=== PATIENT | male | born 1970 | race Caucasian/White ===

== ENCOUNTER → 2016-11-09 | Outpatient (CLI) | payer OTHER ==
[2016-11-09 07:41] LABS: CH 30.7; CHCM 33.5; HDW 2.47; HGB 15.8 gm/dL (13.0-17.5); MCH 30.3 pg (25.0-35.0); MCHC 32.9 g/dL (31.0-37.0); MCV 92.2 fL (80.0-100.0); Mean Platelet Volume 7.5; RBC 5.21 m/uL (4.30-5.90); RDW 14.1 % (11.5-15.5); WBC 9.7 k/uL (3.8-10.6)
[2016-11-09 07:48] LABS: ALT 46 U/L (21-72); AST 31 U/L (17-59); Alkaline Phosphatase 70 U/L (38-126); Anion Gap 10 mmol/L; Blood Urea Nitrogen 18 mg/dL (9-20); Calcium 10.1 mg/dL (8.4-10.2); Carbon Dioxide 28 mmol/L (22-30); Chloride 104 mmol/L (98-107); Cholesterol 139 mg/dL (<200); Glucose 108 mg/dL (74-99); HDL Cholesterol 34 mg/dL (40-60); Non-African American GFR(MDRD) >60 (>60 ml/min/1.73 sqM); Potassium 4.7 mmol/L (3.5-5.1); Sodium 142 mmol/L (137-145); Total Bilirubin 1.4 mg/dL (0.2-1.3); Total Protein 7.2 g/dL (6.3-8.2); Triglycerides 59 mg/dL (<150)
[2016-11-09 11:01] LABS: Hemoglobin A1C 5.8 % (4.2-6.1)
== END ==
LOC: LABWHC1 07:02
PROVIDERS: ATTEND Internal Medicine
DX: E11.9 Type 2 diabetes mellitus without complications (principal); I10 Essential (primary) hypertension
CPT/HCPCS: 36415; 80053; 80061; 82043; 83036; 84439; 84443; 85027

== ENCOUNTER → 2018-05-23 | Outpatient (CLI) | payer OTHER ==
[2018-05-23 11:23] LABS: HCT 47.5 % (39.0-53.0); MCHC 33.6 g/dL (31.0-37.0); MCV 89.1 fL (80.0-100.0); Mean Platelet Volume 6.9; Platelet Count 295 k/uL (150-450); RBC 5.32 m/uL (4.30-5.90); RDW 13.6 % (11.5-15.5); WBC 9.3 k/uL (3.8-10.6)
[2018-05-23 17:28] LABS: Albumin 4.4 g/dL (3.80-4.90); Albumin/Globulin Ratio 2.44 (1.20-2.10); Anion Gap 6.1 mmol/L (4.00-12.00); Calcium 9.9 mg/dL (8.7-10.3); Carbon Dioxide 25.9 mmol/L (21.6-31.8); Globulin 1.8 g/dL (2.1-3.7); LDL Cholesterol,Calculated 100.2 mg/dL (0.0-131.0); Potassium 4.7 mmol/L (3.5-5.5); Total Bilirubin 0.8 mg/dL (0.2-1.2); Total Protein 6.2 g/dL (6.2-8.2); VLDL Calculation 15.8 mg/dL (5.00-40.00)
[2018-05-23 17:35] LABS: Prostate Specific Antigen 0.8 ng/mL (0.0-2.5)
== END | disposition home or self-care (01) ==
LOC: LABWHC1 10:34
PROVIDERS: ATTEND Internal Medicine
DX: E78.00 Pure hypercholesterolemia, unspecified (principal); E11.9 Type 2 diabetes mellitus without complications; I10 Essential (primary) hypertension; Z12.5 Encounter for screening for malignant neoplasm of prostate
CPT/HCPCS: 36415; 80053; 80061; 82043; 82570; 83036; 84153; 84443; 85027

== ENCOUNTER 2018-08-05 11:54 | Emergency (ER) | payer OTHER ==
--- NOTE | 2018-08-05 13:09 | ED ---
General Adult HPI - General Chief complaint: Extremity Injury, Upper Stated complaint: IHS-Crushing Finger Injury Source: patient, RN notes reviewed Mode of arrival: ambulatory Limitations: no limitations - History of Present Illness Initial comments: Patient is a 48-year-old male who presents the emergency department with complaint of left pinky finger injury that occurred at work at approximately 11 AM today. He reports 2 pieces of concrete smashed his finger. He reports going to [facility] and then being sent to the ER for concern of possible open fracture. He reports being up-to-date on his tetanus vaccination. He denies taking anything for pain and states that he does not need anything for pain at this time. Patient denies any recent fever, chills, shortness of breath, chest pain, back pain, abdominal pain, nausea or vomiting, head injury, headaches or visual changes, or any other complaints. - Related Data Home Medications Medication Instructions Recorded Confirmed Lisinopril-Hctz 20-25 mg 1 tab PO DAILY 05/28/16 05/28/16 [Zestoretic 20-25] Previous Rx's Medication Instructions Recorded Cephalexin [Keflex] 500 mg PO Q6HR 7 Days 08/05/18 Allergies Allergy/AdvReac Type Severity Reaction Status Date / Time Penicillins AdvReac Severe Rapid Verified 05/28/16 17:34 Heart Rate Review of Systems ROS Statement: Those systems with pertinent positive or pertinent negative responses have been documented in the HPI. ROS Other: All systems not noted in ROS Statement are negative. Past Medical History Past Medical History: GERD/Reflux, Hypertension, Sleep Apnea/CPAP/BIPAP Additional Past Medical History / Comment(s): [id number] MEDS NO BS CHECKS , PT STATED "HE WAS TOLD THAT HE MUST HAVE HAD AN OR IN PAST (PER EKG)"- GREATER THEN 10 YEARS AGO History of Any Multi-Drug Resistant Organisms: None Reported Past Surgical History: Back Surgery, Hernia Repair Past Anesthesia/Blood Transfusion Reactions: No Reported Reaction Past Psychological History: No Psychological Hx Reported Smoking Status: Current every day smoker Past Alcohol Use History: Occasional Past Drug Use History: None Reported - Past Family History Mother Family Medical History: Cancer, Rheumatoid Arthritis (RA) Additional Family Medical History / Comment(s): BREAST CANCER Father Family Medical History: Diabetes Mellitus General Exam Limitations: no limitations General appearance: alert, in no apparent distress Head exam: Present: atraumatic, normocephalic Eye exam: Present: normal appearance Respiratory exam: Present: normal lung sounds bilaterally Cardiovascular Exam: Present: regular rate, normal rhythm Extremities exam: Present: full ROM, normal capillary refill, other (Able to maintain finger extension against resistance.) Neurological exam: Present: alert, oriented X3 Psychiatric exam: Present: normal affect, normal mood Skin exam: Present: warm, dry Course Vital Signs 08/05/18 08/05/18 08/05/18 12:19 14:13 16:36 Temperature 98.1 F 97.8 F Pulse Rate 76 69 75 Respiratory 18 16 Rate Blood Pressure 145/71 150/88 O2 Sat by Pulse 96 95 Oximetry Procedures - Laceration Laceration #1 Consent Obtained: verbal consent Time Out Performed: Yes Indication: laceration Site: hand Size (cm): 2 Description: linear Depth: simple, single layer Sedation/Analgesia: none Anesthetic Used: lidocaine 1%, without epi Anesthesia Technique: nerve block Amount (mls): 4 Pre-repair: wound explored, irrigated extensively Type of Sutures: nylon Size of Sutures: 4-0 Number of Sutures: 4 Technique: simple, interrupted Patient Tolerated Procedure: well, no complications Additional Comments: Neurovascularly intact following procedure. - Nerve Block Consent Obtained: verbal consent Time Out Performed: Yes Local Anesthetic Used: Lidocaine 1% Amount of anesthesia used: 4 Side: left Nerve Blocks: digital Procedure Successful: Yes Complications: none Patient Tolerated Procedure: well Additional Comments: Neurovascularly intact following procedure. Medical Decision Making - Medical Decision Making X-ray of the left hand reveals no acute fracture or dislocation. Laceration repaired. Will discharge with prescription for Keflex. Case discussed in detail with attending physician Dr. Donovan. Disposition Clinical Impression: Laceration Disposition: HOME SELF-CARE Condition: Good Instructions: Care For Your Stitches (ED) Additional Instructions: Follow-up with your PCP in 1 to 2 days. Return to the emergency department or follow-up with your PCP in 10-14 days for suture removal. Please take antibiotics as prescribed. Return to the emergency department if any redness, swelling, drainage or fevers as these could indicate an infection. Return to the emergency department for any other concerns. Prescriptions: Cephalexin [Keflex] 500 mg PO Q6HR 7 Days Is patient prescribed a controlled substance at d/c from ED?: No Referrals: Belle Seymour MD [Primary Care Provider] - 1-2 days Time of Disposition: 16:40
--- NOTE | 2018-08-05 13:38 | XR ---
EXAMINATION TYPE: XR hand complete LT DATE OF EXAM: 08/05/2018 CLINICAL HISTORY: Smashing injury with pain TECHNIQUE: Frontal, lateral and oblique images of the left hand are obtained. COMPARISON: None. FINDINGS: There is no acute fracture/dislocation evident in the left hand. The joint spaces in the l eft hand appear within normal limits. The overlying soft tissue appears unremarkable. IMPRESSION: There is no acute fracture or dislocation in the left hand.
[2018-08-05] MEDS ORDERED: LIDOCAINE 1% INJ 10MG/ML (20 ML MDV) SQ STA (15:22)
[2018-08-05 16:36] VITALS: BP 150/88; PULSE 75; RESP 16; TEMP 97.8
== END 2018-08-05 16:47 | disposition home or self-care (01) ==
LOC: EC 11:54
DX: S61.217A Laceration without foreign body of left little finger without damage to nail, initial encounter (principal); I10 Essential (primary) hypertension; G47.30 Sleep apnea, unspecified; F17.200 Nicotine dependence, unspecified, uncomplicated; Z79.899 Other long term (current) drug therapy; Z88.0 Allergy status to penicillin; Z99.89 Dependence on other enabling machines and devices; W23.0XXA Caught, crushed, jammed, or pinched between moving objects, initial encounter; Y92.69 Other specified industrial and construction area as the place of occurrence of the external cause; Y99.0 Civilian activity done for income or pay
CPT/HCPCS: 73130; 99283; 12001; J2001

== ENCOUNTER → 2018-11-29 | Outpatient (CLI) | payer OTHER ==
[2018-11-29 08:38] LABS: Basophils % (A) 0 %; Eosinophils # (A) 0.3 k/uL (0-0.7); Eosinophils % (A) 3 %; HCT 48.7 % (39.0-53.0); HGB 16.5 gm/dL (13.0-17.5); Lymphocytes # (A) 2.6 k/uL (1.0-4.8); Lymphocytes % (A) 26 %; MCH 30.4 pg (25.0-35.0); MCHC 33.9 g/dL (31.0-37.0); MCV 89.6 fL (80.0-100.0); Mean Platelet Volume 7.2; Monocytes # (A) 0.7 k/uL (0-1.0); Monocytes % (A) 7 %; Neutrophils # (A) 6.2 k/uL (1.3-7.7); Neutrophils % (A) 63 %; Platelet Count 284 k/uL (150-450); RBC 5.43 m/uL (4.30-5.90); RDW 13.5 % (11.5-15.5); WBC 9.9 k/uL (3.8-10.6)
[2018-11-30 11:16] LABS: Albumin 4.5 g/dL (3.80-4.90); Albumin/Globulin Ratio 2.37 (1.60-3.17); Anion Gap 11.2 mmol/L (4.00-12.00); Calcium 9.9 mg/dL (8.7-10.3); Carbon Dioxide 18.8 mmol/L (21.6-31.8); Globulin 1.9 g/dL (1.6-3.3); Potassium 4.6 mmol/L (3.5-5.5); Total Bilirubin 0.5 mg/dL (0.3-1.2); Total Protein 6.4 g/dL (6.2-8.2)
[2018-11-30 14:41] LABS: Hemoglobin A1C 6.3 % (4.0-6.0)
== END | disposition home or self-care (01) ==
LOC: LABMAIN 07:14
PROVIDERS: ATTEND Internal Medicine
DX: Z00.01 Encounter for general adult medical examination with abnormal findings (principal); E11.9 Type 2 diabetes mellitus without complications; I10 Essential (primary) hypertension; E78.00 Pure hypercholesterolemia, unspecified
CPT/HCPCS: 36415; 80053; 80061; 83036; 85025

== ENCOUNTER → 2020-06-30 | Outpatient (CLI) | payer BC | END | disposition home or self-care (01) | LOC: LABWHC1 17:03 | PROVIDERS: ATTEND Internal Medicine | DX: Z20.828 Contact with and (suspected) exposure to other viral communicable diseases (principal) | CPT/HCPCS: U0003; C9803 ==

== ENCOUNTER → 2022-06-01 | Outpatient (CLI) | payer BC ==
[2022-06-02 03:54] LABS: Basophils # (A) 0.1 k/uL (0-0.2); Basophils % (A) 1 %; Eosinophils # (A) 0.2 k/uL (0-0.7); Eosinophils % (A) 2 %; HCT 51.3 % (39.0-53.0); HGB 17.4 gm/dL (13.0-17.5); Lymphocytes # (A) 2.6 k/uL (1.0-4.8); Lymphocytes % (A) 25 %; MCHC 33.8 g/dL (31.0-37.0); MCV 91.8 fL (80.0-100.0); Mean Platelet Volume 11.7; Monocytes # (A) 0.7 k/uL (0-1.0); Monocytes % (A) 7 %; Neutrophils # (A) 6.7 k/uL (1.3-7.7); Neutrophils % (A) 64 %; Platelet Count 204 k/uL (150-450); RBC 5.59 m/uL (4.30-5.90); RDW 13.5 % (11.5-15.5); WBC 10.5 k/uL (3.8-10.6)
[2022-06-02 09:25] LABS: ALT 48 U/L (10-49); AST 26 U/L (14-35); African American GFR (CKD) 117.6 (60.0-200.0); Albumin 4.4 g/dL (3.8-4.9); Albumin/Globulin Ratio 1.98 (1.60-3.17); Alkaline Phosphatase 80 U/L (41-126); Blood Urea Nitrogen 16.1 mg/dL (9.0-27.0); Calcium 9.9 mg/dL (8.7-10.3); Carbon Dioxide 26.2 mmol/L (20.0-27.5); Chloride 102 mmol/L (96-109); Chol/HDL Ratio 5.46 Ratio; Globulin 2.2 g/dL (1.6-3.3); Glucose 113 mg/dL (70-110); LDL Cholesterol,Calculated 125.9 mg/dL (0.0-131.0); Non-African American GFR(CKD) 101.5 (60.0-200.0); Potassium 4.7 mmol/L (3.5-5.5); Sodium 138 mmol/L (135-145); Total Protein 6.7 g/dL (6.2-8.2)
== END | disposition home or self-care (01) ==
LOC: LABWHC1 10:55
PROVIDERS: ATTEND Internal Medicine
DX: Z00.01 Encounter for general adult medical examination with abnormal findings (principal); Z12.5 Encounter for screening for malignant neoplasm of prostate; I10 Essential (primary) hypertension; E78.5 Hyperlipidemia, unspecified; R73.03 Prediabetes
CPT/HCPCS: 36415; 80053; 80061; 83036; 84153; 85025

== ENCOUNTER → 2023-10-11 | Outpatient (CLI) | payer BC ==
[2023-10-11 12:59] LABS: Basophils # (A) 0.05 X 10*3/uL (0.00-0.10); Basophils % (A) 0.5 %; Eosinophils # (A) 0.27 X 10*3/uL (0.04-0.35); Eosinophils % (A) 2.9 %; HCT 47.1 % (39.6-50.0); HGB 15.9 g/dL (13.0-17.0); Lymphocytes # (A) 2.75 X 10*3/uL (0.90-5.00); Lymphocytes % (A) 29.2 %; MCH 29.7 pg (27.0-32.0); MCHC 33.8 g/dL (32.0-37.0); Mean Platelet Volume 10.7 FL (9.5-12.2); Monocytes # (A) 0.84 X 10*3/uL (0.20-1.00); Monocytes % (A) 8.9 %; NRBC Per 100 WBC 0 X 10*3/uL (0.00-0.01); Neutrophils # (A) 5.49 X 10*3/uL (1.80-7.70); Neutrophils % (A) 58.2 %; Platelet Count 277 X 10*3/uL (140-440); RBC 5.35 X 10*6/uL (4.40-5.60); RDW 13.1 % (11.5-14.5); WBC 9.43 X 10*3/uL (4.50-10.00)
[2023-10-11 13:29] LABS: ALT 61 U/L (10-49); AST 35 U/L (14-35); Albumin 4.2 g/dL (3.8-4.9); Albumin/Globulin Ratio 1.68 Ratio (1.60-3.17); Alkaline Phosphatase 82 U/L (41-126); BUN/Creat Ratio 21.62 Ratio (12.00-20.00); Blood Urea Nitrogen 17.3 mg/dL (9.0-27.0); Calcium 9.9 mg/dL (8.7-10.3); Carbon Dioxide 24.4 mmol/L (21.6-31.8); Chloride 99 mmol/L (96-109); Chol/HDL Ratio 6.01 Ratio; Globulin 2.5 g/dL (1.6-3.3); Glucose 150 mg/dL (70-110); Potassium 4.4 mmol/L (3.5-5.5); Sodium 136 mmol/L (135-145); Total Bilirubin 0.9 mg/dL (0.3-1.2); Total Protein 6.7 g/dL (6.2-8.2)
== END | disposition home or self-care (01) ==
LOC: LABWHC1 09:10
PROVIDERS: ATTEND Internal Medicine
DX: Z00.01 Encounter for general adult medical examination with abnormal findings (principal); I10 Essential (primary) hypertension; E78.5 Hyperlipidemia, unspecified; R73.03 Prediabetes
CPT/HCPCS: 36415; 80053; 80061; 83036; 85025

== ENCOUNTER → 2024-06-05 | Outpatient (CLI) | payer OTHER ==
[2024-06-05 22:48] LABS: Basophils # (A) 0.04 X 10*3/uL (0.00-0.10); Basophils % (A) 0.4 %; Eosinophils # (A) 0.19 X 10*3/uL (0.04-0.35); HCT 52.4 % (39.6-50.0); HGB 17.6 g/dL (13.0-17.0); Lymphocytes % (A) 28.9 %; MCH 30.6 pg (27.0-32.0); MCHC 33.6 g/dL (32.0-37.0); Mean Platelet Volume 11.5 FL (9.5-12.2); Monocytes # (A) 0.83 X 10*3/uL (0.20-1.00); Monocytes % (A) 8.6 %; NRBC Per 100 WBC 0 X 10*3/uL (0.00-0.01); Neutrophils % (A) 59.8 %; Platelet Count 311 X 10*3/uL (140-440); RBC 5.76 X 10*6/uL (4.40-5.60); WBC 9.69 X 10*3/uL (4.50-10.00)
[2024-06-05 23:16] LABS: Microalbumin Creatinine Ratio <12 mg/g Cr (0-30)
[2024-06-07 07:55] LABS: Prostate Specific Antigen 0.98 ng/mL (0.000-3.500); VLDL Calculation 19.16 mg/dL (5.00-40.00)
[2024-06-07 08:12] LABS: ALT 42 U/L (10-49); AST 26 U/L (14-35); Albumin 4.3 g/dL (3.8-4.9); Albumin/Globulin Ratio 1.87 Ratio (1.60-3.17); Alkaline Phosphatase 87 U/L (41-126); BUN/Creat Ratio 15.78 Ratio (12.00-20.00); Blood Urea Nitrogen 14.2 mg/dL (9.0-27.0); Calcium 9.9 mg/dL (8.7-10.3); Carbon Dioxide 23.8 mmol/L (21.6-31.8); Chloride 101 mmol/L (96-109); Chol/HDL Ratio 5.14 Ratio; Globulin 2.3 g/dL (1.6-3.3); Glucose 125 mg/dL (70-110); LDL Cholesterol,Calculated 118.5 mg/dL (0.0-131.0); Potassium 4.6 mmol/L (3.5-5.5); Sodium 139 mmol/L (135-145); Total Bilirubin 0.7 mg/dL (0.3-1.2); Total Protein 6.6 g/dL (6.2-8.2)
== END | disposition home or self-care (01) ==
LOC: LABWHC1 09:05
PROVIDERS: ATTEND Internal Medicine
DX: Z00.01 Encounter for general adult medical examination with abnormal findings (principal); Z12.5 Encounter for screening for malignant neoplasm of prostate; I10 Essential (primary) hypertension; E11.9 Type 2 diabetes mellitus without complications; E78.5 Hyperlipidemia, unspecified
CPT/HCPCS: 36415; 80053; 80061; 82043; 82570; 83036; 84153; 85025